=== PATIENT | female | born 1940 | race Caucasian/White ===

== ENCOUNTER 2020-02-23 12:15 | Emergency (ER) | payer MEDICARE, BC ==
[2020-02-23] MEDS ORDERED: Acetaminophen/oxyCODONE 325-5 MG Tab PO ONE (13:19)
--- NOTE | 2020-02-23 13:24 | EDM.PDOC ---
ED HPI GENERAL MEDICAL PROBLEM - General Chief Complaint: Lower Extremity Injury/Pain Stated Complaint: RLE pain Time Seen by Provider: 02/23/20 12:18 Source of Information: Reports: Patient, EMS History Limitations: Reports: No Limitations - History of Present Illness INITIAL COMMENTS - FREE TEXT/NARRATIVE: Jessica is a 79 year old female who presents to ER with complaints of right hip and wrist pain. Patient had gone outside and fell on her right side. She states she slipped and fell and was unable to get up. A neighbor did call for help. Admits to the most pain in her right wrist at present. Did not hit her head nor lose consciousness. Denies shortness of breath or chest discomfort. No nausea or abdominal or pelvic discomfort. GCS 15 Onset: Today, Sudden Duration: Minutes: Location: Reports: Upper Extremity, Right, Lower Extremity, Right Quality: Reports: Ache Severity: Moderate Improves with: Reports: Rest Worsens with: Reports: Movement Associated Symptoms: Denies: Confusion, Chest Pain, Cough, Fever/Chills, Headaches, Loss of Appetite, Nausea/Vomiting, Shortness of Breath, Syncope Right Hip Pain Score (Numeric/FACES): 5 Right Wrist Pain Score (Numeric/FACES): 7 - Related Data Allergies Allergy/AdvReac Type Severity Reaction Status Date / Time No Known Allergies Allergy Verified 02/23/20 12:25 Home Meds: Home Meds Alendronate [Fosamax] 10 mg PO DAILY 02/23/20 [History] Clopidogrel [Plavix] 75 mg PO DAILY 02/23/20 [History] Lisinopril/Hydrochlorothiazide [Lisinopril-HCTZ 10-12.5 MG] 1 tab PO DAILY 02/23/20 [History] amLODIPine [Norvasc] 2.5 mg PO BEDTIME 02/23/20 [History] Past Medical History HEENT History: Reports: Cataract Cardiovascular History: Reports: Hypertension Neurological History: Reports: CVA - Past Surgical History GI Surgical History: Reports: Appendectomy Social & Family History - Tobacco Use Tobacco Use Status *Q: Never Tobacco User - Caffeine Use Caffeine Use: Reports: Coffee, Soda Review of Systems - Review of Systems Review Of Systems: See Below Constitutional: Denies: Chills, Diaphoresis, Fever, Weakness Eyes: Reports: No Symptoms Ears: Denies: Dizziness, Bloody Discharge Nose: Denies: Congestion, Epistaxis Mouth/Throat: Reports: No Symptoms Respiratory: Denies: Shortness of Breath, Cough Cardiovascular: Denies: Chest Pain, Edema, Palpitations GI/Abdominal: Denies: Abdominal Pain, Nausea, Vomiting Genitourinary: Reports: No Symptoms Musculoskeletal: Reports: Arm Pain, Joint Pain Skin: Reports: No Symptoms Neurological: Reports: No Symptoms Psychiatric: Reports: No Symptoms ED EXAM, GENERAL - Physical Exam Exam: See Below Exam Limited By: No Limitations General Appearance: Alert, WD/WN, Mild Distress Ears: Normal External Exam, Normal TMs Nose: Normal Inspection, Normal Mucosa, No Blood Throat/Mouth: Normal Inspection, Normal Oropharynx Head: Normocephalic Neck: Normal Inspection, Supple, Non-Tender Respiratory/Chest: No Respiratory Distress, Lungs Clear, Normal Breath Sounds Cardiovascular: Regular Rate, Rhythm GI/Abdominal: Normal Bowel Sounds, Soft, Non-Tender Extremities: Arm Pain, Leg Pain, Limited Range of Motion, Other (right hip swelling noted. Right leg is externally rotated and shortened. Right wrist swelling noted. ) Neurological: Alert, Oriented Skin Exam: Warm, Dry Course - Vital Signs Last Recorded V/S: Last Vital Signs Temp 98.3 F 02/23/20 13:03 Pulse 108 H 02/23/20 13:03 Resp 16 02/23/20 13:03 BP 148/66 H 02/23/20 13:03 Pulse Ox 98 02/23/20 13:03 - Orders/Labs/Meds Labs: Laboratory Tests 02/23/20 Range/Units 12:37 SARS CoV-2 RNA Rapid RAYMOND Negative (NEGATIVE) Meds: Medications Discontinued Medications Generic Name Dose Route Start Last Admin Trade Name [place] PRN Reason Stop Dose Admin Oxycodone/Acetaminophen 1 tab 02/23/20 13:19 02/23/20 13:23 Percocet 325-5 Mg PO 02/23/20 13:20 1 tab ONETIME ONE Administration - Re-Assessments/Exams Free Text/Narrative Re-Assessment/Exam: 02/23/20 1250-contacted Dr. Garcia at [facility] for displaced right intertro chanteric hip fracture. Agreed to accept the patient in transfer. BLS arranged. Patient agreed to transfer, notified. Risks and benefits of transfer discussed with patient. Risks of transfer include worsening status, vehicle crash or . Benefits of transfer include definitive orthopedic care for fracture. risks of non transfer include worsening status, immobility, possible . Benefits of non transfer include care close to home. Patient agrees to transfer. 1300-One step pre-rohit splint applied to right wrist. Patient tolerated well. Departure - Departure Time of Disposition: 13:29 Disposition: DC/Tfer to Acute Hospital 02 Condition: Fair Clinical Impression: Intertrochanteric fracture, hip, Distal radius fracture, right - Discharge Information *PRESCRIPTION DRUG MONITORING PROGRAM REVIEWED*: No *COPY OF PRESCRIPTION DRUG MONITORING REPORT IN PATIENT KARINA: No Referrals: Jade Pack PA [Primary Care Provider] - Forms: ED Department Discharge Additional Instructions: Transfer BLS to Dr. Jose Ordonez. Sepsis Event Note (ED) - Evaluation Sepsis Screening Result: No Definite Risk
== END 2020-02-23 13:30 ==
LOC: CC.ED 12:15
DX: S72.141A Displaced intertrochanteric fracture of right femur, initial encounter for closed fracture (principal); S52.571A Other intraarticular fracture of lower end of right radius, initial encounter for closed fracture; S52.611A Displaced fracture of right ulna styloid process, initial encounter for closed fracture; I10 Essential (primary) hypertension; Z86.73 Personal history of transient ischemic attack (TIA), and cerebral infarction without residual deficits; Z79.02 Long term (current) use of antithrombotics/antiplatelets; Z79.899 Other long term (current) drug therapy; W01.0XXA Fall on same level from slipping, tripping and stumbling without subsequent striking against object, initial encounter
CPT/HCPCS: 73110-RT; 99284; 99284-25; A9270-GY; U0002